=== PATIENT | female | born 1985 | race Caucasian/White ===

== ENCOUNTER 2020-06-23 16:47 | Emergency (ER) | payer BC, SELFPAY ==
[2020-06-23 16:50] VITALS: PULSE 74; RESP 18; TEMP 36.9; O2SAT 100; BMI 56.2
--- NOTE | 2020-06-23 18:05 | XR_ITS ---
WS: [id number] XR chest 1V portable [id number] REASON FOR EXAM: CP FINDINGS: The heart and mediastinum are within normal limits. No active pulmonary parenchymal or pleural disease is noted. The bony thorax is intact. XR/XR chest 1V portable 12013 IMPRESSION: No acute chest abnormality.
--- NOTE | 2020-06-23 18:05 | ECG_ITS ---
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 Measurements Intervals [place] Rate: 87 P: 71 HI: 131 QRS: 79 QRSD: 95 T: 34 QT: 385 QTc: 463 Interpretive Statements SINUS RHYTHM WITH SINUS ARRHYTHMIA WARNING: DATA QUALITY MAY AFFECT INTERPRETATION No previous ECG available for comparison Electronically Signed On 06-23-2020 23:59:50 CDT by Miesha Mckeon M.D. [id number]
[2020-06-23 18:57] LABS: Basophils % 0.3 %; Eosinophils # 0.1 10^3/uL (0.0-0.8); Eosinophils % 1.2 %; Hematocrit 40.3 % (37.0-47.0); Hemoglobin 12.8 g/dL (11.5-15.3); Lymphocytes % 19.4 %; Mean Corpuscular HGB Conc 31.8 g/dL (30.0-36.0); Mean Corpuscular Hemoglobin 27.4 pg (28.0-34.0); Mean Corpuscular Volume 86.3 fL (81-99); Mean Platelet Volume 10.8 fL (7.4-10.4); Monocytes # 0.3 10^3/uL (0.2-0.9); Monocytes % 2.7 %; Neutrophils # 8.01 10^3/uL (1.8-7.7); Neutrophils % 76.1 %; Nucleated Red Blood Cells % 0 %; Platelet Count 329 10^3/cmm (130-400); Red Blood Count 4.67 10^6/uL (4.1-5.3); Red Cell Distribution Width 13.2 % (12.1-15.1); White Blood Count 10.5 10^3/uL (4.0-10.0)
[2020-06-23 19:19] LABS: Alanine Aminotransferase 14 U/L (0-33); Albumin Level 4.3 g/dL (3.5-5.2); Alkaline Phosphatase 85 IU/L (35-105); Anion Gap 13.7 (5-19); Aspartate Amino Transferase 19 U/L (0-32); Blood Urea Nitrogen 8 mg/dL (6-20); Calcium 8.7 mg/dL (8.5-10.5); Carbon Dioxide 25 mmol/L (22-29); Chloride 102 mmol/L (98-107); Globulin 3.4 g/dL (1.3-4.6); Glomerular Filtration Rate 140.4 mL/min (90-130); Glucose 83 mg/dL (65-115); Osmolality Calculated 281 mOsm/kg (285-295); Potassium 3.7 mmol/L (3.5-5.1); Sodium 137 mmol/L (136-145); Total Bilirubin 0.6 mg/dL (0.15-1.2); Total Protein 7.7 g/dL (6.6-8.7)
[2020-06-23 19:21] LABS: Troponin(5th) Baseline 6 ng/L (0-10)
--- NOTE | 2020-06-23 19:46 | ED_ITS ---
HPI - Chest Pain General: Chief Complaint: Chest Pain Stated Complaint: CHEST PAIN Time Seen by Provider: 06/23/20 18:17 Source: patient, family and RN notes reviewed Limitations: no limitations History of Present Illness: HPI narrative: This patient is a 34-year-old female who presents to the emergency department complaint of right shoulder and shoulder blade pain. With movement. Patient states she went on a trip this weekend is having pain in her back. Patient states the counter wraps wraps around the right side to her chest. And hurts when she breathes only in the muscle. Patient does not describe any shortness of breath. Patient states she has had issues like this in the past when her back would hurt it would radiate around her diminished chest wall. Patient states with movement or twisting she also has pain. Pain to palpation. Patient was told to come to the emergency department to make sure she did not have any significant heart issues. Onset (ago): day(s) (5) Pain location: lateral Severity: moderate Associated symptoms: Reports abdominal pain; Deny dyspnea, fever(s), nausea, palpitations or vomiting Review of Systems General: Reports: 10 or more systems reviewed and unremarkable except in HPI and below Const: Denies: fever(s) Eyes: Denies: change in vision or blurry vision ENMT: Denies: throat pain, hoarseness or mouth pain Card: Denies: palpitations Resp: Denies: dyspnea GI: Reports: abdominal pain; Denies: nausea or vomiting : Reports: flank pain; Denies: difficulty voiding, dysuria, urinary frequency, urinary urgency or urinary hesitancy Musc: Reports: neck pain and back pain; Denies: extremity pain, extremity swelling, joint pain, joint swelling, joint redness, joint warmth or limited range of motion Skin/Breast: Denies: rash, pruritus, erythema or skin tenderness Neuro: Denies: headache(s), numbness in extremities or weakness in extremities Psych: Denies: anxiety or depression PFS ED PFSH: Social History Smoking and tobacco status: never smoked Alcohol intake: never Female Reproductive History: Spontaneous abortions: No Physical Exam Const: COMMON NORMALS: no acute distress, average body habitus, patient oriented x3, no limitations, healthy appearing, alert and well nourished HENMT: COMMON NORMALS: normocephalic, atraumatic, external ears normal, EAC's normal, TM's normal bilaterally, Normal external nose present and Normal nasal mucous membranes and turbinates present HEAD & SCALP: normocephalic and atraumatic NOSE: Normal external nose present and Normal nasal mucous membranes and turbinates present EXTERNAL EAR: Yes external ears normal EXTERNAL AUDITORY CANAL: EAC's normal TYMPANIC MEMBRANE: TM's normal bilaterally Neck/C-Spine: COMMON NORMALS: full ROM, no lymphadenopathy, supple, no meningeal signs, no JVD, Thyroid normal and No carotid bruits THYROID: Thyroid normal Chest: COMMONS NORMALS: normal inspection of the chest, normal palpation of entire chest wall, normal inspection of the breasts and normal palpation of the breasts Breast/axilla inspection: Yes normal inspection of the breasts BREAST/AXILLA PALPATION: Yes normal palpation of the breasts Resp: COMMON NORMALS: normal respiratory effort, No retractions, No use of accessory muscles, clear to auscultation bilaterally and percussion normal AUSCULTATION: clear to auscultation bilaterally PERCUSSION: percussion normal Cardio: COMMON NORMALS: no JVD, regular rate, regular rhythm, S1 normal heart sound present, S2 normal heart sound present, No gallops present (Cardio), No clicks present (Cardio), No murmurs present (Cardio), No rub (Cardio) and Peripheral pulses 2+ throughout RATE: regular rate RHYTHM: regular rhythm HEART SOUNDS: S1 normal heart sound present and S2 normal heart sound present PERIPHERAL PULSES: Peripheral pulses 2+ throughout GI: COMMON NORMALS: Normal to inspection, nondistended, normoactive bowel sounds present, Soft to palpation, non-tender, No hepatosplenomegaly present, no masses and no bruits PALPATION: Yes Soft to palpation and Yes No hepatosplen omegaly present : COMMON NORMALS: Yes no CVA tenderness, Yes normal external appearance, Yes normal appearance of the vagina, Yes normal appearance of the cervix, Yes normal bimanual exam, Yes No adnexal tenderness and Yes no masses BLADDER/KIDNEY EXAM: Yes no CVA tenderness BIMANUAL EXAM - VAGINA & UTERUS: Yes normal bimanual exam Back/Pelvis: COMMON NORMALS: no CVA tenderness, thoracic and lumbar spine normal to inspection, no thoracic nor lumbar tenderness, thoraco-lumbar ROM normal and straight leg raise negative bilaterally BACK IMAGE (FEMALE): 1. Pain in the musculature here patient winces when pressing on the trigger point. Extremity: COMMON NORMALS: normal to inspection, full ROM, capillary refill normal, no joint enlargement, no clubbing, cyanosis or edema, no calf tenderness and no pedal edema Neuro: COMMON NORMALS: patient oriented x3 SENSORIUM/ORIENTATION: Yes alert MENINGEAL SIGNS: Yes no meningeal signs Course Reevaluation(s): Reevaluation #1: Patient appears to have musculoskeletal pain. Tender to palpation. Patient be given prescription of Flexeril at discharge. Time: 19:49 Vital Signs: Vital signs: Vital Signs Temperature 98.4 F 06/23/20 16:50 Pulse Rate 74 06/23/20 16:50 Respiratory Rate 18 06/23/20 16:50 Pulse Oximetry 100 06/23/20 16:50 MDM - Chest Pain MDM Narrative: Medical decision making narrative: Atypical chest pain. Musculoskeletal pain. Back pain. Lab Data: Attestation: I reviewed the patient's lab results. Labs: Lab Results 06/23/20 06/23/20 06/23/20 Range/Units 18:41 18:41 18:41 WBC 10.5 H (4.0-10.0) 10^3/ uL RBC 4.67 (4.1-5.3) 10^6/u L Hgb 12.8 (11.5-15.3) g/dL Hct 40.3 (37.0-47.0) % MCV 86.3 (81-99) fL MCH 27.4 L (28.0-34.0) pg MCHC 31.8 (30.0-36.0) g/dL RDW 13.2 (12.1-15.1) % Plt Count 329 (130-400) 10^3/c mm MPV 10.8 H (7.4-10.4) fL Neut % (Auto) 76.1 % Lymph % (Auto) 19.4 % [place] % (Auto) 2.7 % Eos % (Auto) 1.2 % Baso % (Auto) 0.3 % Neut # (Auto) 8.01 H (1.8-7.7) 10^3/u L Lymph # (Auto) 2.0 (0.8-4.8) 10^3/u L [place] # (Auto) 0.3 (0.2-0.9) 10^3/u L Eos # (Auto) 0.1 (0.0-0.8) 10^3/u L Baso # (Auto) 0.0 (0.0-0.1) 10^3/u L Nucleated RBC % (a uto) 0 % Nucleated RBCs # 0.0 /100WBC Sodium 137 (136-145) mmol/L Potassium 3.7 (3.5-5.1) mmol/L Chloride 102 (98-107) mmol/L Carbon Dioxide 25 (22-29) mmol/L Anion Gap 13.7 (5-19) BUN 8 (6-20) mg/dL Creatinine 0.5 (0.5-0.9) mg/dL GFR Calculation 140.4 H (90-130) mL/min Glucose 83 (65-115) mg/dL Calculated Osmolal ity 281 L (285-295) mOsm/k g Calcium 8.7 (8.5-10.5) mg/dL Total Bilirubin 0.6 (0.15-1.2) mg/dL AST 19 (0-32) U/L ALT 14 (0-33) U/L Alkaline Phosphata se 85 (35-105) IU/L Troponin T Baselin e 6 (0-10) ng/L Total Protein 7.7 (6.6-8.7) g/dL Albumin 4.3 (3.5-5.2) g/dL Globulin 3.4 (1.3-4.6) g/dL Imaging Data^: CXR: Attestation: I personally reviewed and interpreted this imaging study as follows: My impression: Negative for acute findings EKG Data^: EKG 1: Attestation: I personally reviewed and interpreted this EKG as follows: EKG interpretation date: 06/23/20 EKG interpretation time: 16:55 Prior EKG tracings: not available for review Interpretation: Normal sinus rhythm normal EKG Discharge Plan Discharge Patient Disposition: Home Clinical Impression: Atypical chest pain, Back pain Condition: Stable Prescriptions: New diclofenac potassium 50 mg tablet 50 mg PO Q12H PRN (Reason: pain) Qty: 20 RF: 0 cyclobenzaprine 10 mg tablet 10 mg PO BID PRN (Reason: muscle spasm) Qty: 10 RF: 0 Discharge Orders: Discharge ED (Routine); Ordered 06/23/20 Ordered By: Alexandr Ontiveros Referrals: Jay Cool FNP [Primary Care Provider] - Discharge Diet: Advance as tolerated Discharge Activity: Resume usual activity and Increase activity as tolerated Patient Instructions: Opioid Safety Activity Restrictions/Additional Instructions: Heating pad as tolerated. Alternate with heat and ice. Tennis ball as needed to alleviate trigger point. Take medications as prescribed. Coding Level of Care Code ED Director [employer] for Abebe Hdz
[2020-06-23 20:03] VITALS: BP 183/107; PULSE 80; RESP 13; O2SAT 100
== END 2020-06-23 20:03 | disposition home or self-care (01) ==
PROVIDERS: Family Medicine; Emergency Provider Emergency Medicine; PCP Nurse Practitioner Family
DX: M54.9 Dorsalgia, unspecified (principal); R07.89 Other chest pain
CPT/HCPCS: 71045; 80053; 84484; 85025; 93005; 99283